=== PATIENT | female | born 1995 | race Caucasian/White ===

== ENCOUNTER 2018-06-07 07:26 | Day surgery (SDC) | payer OTHER, MEDICAID, SELFPAY ==
[2018-06-05 08:00] VITALS: BMI 30.3
[2018-06-07] VITALS (10 sets, daily range): BP systolic 112–144; BP diastolic 73–101; PULSE 70–105; RESP 12–16; TEMP 35.9–36.6; O2SAT 97–100; BMI 30.3
[2018-06-07] MEDS: LACTATED RINGERS 1,000 ML 42 ML IV (08:16)
[2018-06-07] MEDS: CLINDAMYCIN 600 MG/50 ML PIGGYBACK 50 MG IV (08:55)
--- NOTE | 2018-06-07 09:21 | SUR.OPER ---
Lithotomy on padded OR bed, head on pillow, arms secured on padded arm boards at <90 degrees abduction. Legs secured in padded yellow fins stirrups.
[2018-06-07] MEDS: BUPIVACAINE 0.5% W/ EPI (PF) VIAL 30 ML INJ (09:32)
--- NOTE | 2018-06-07 09:54 | PM.GYNOP.1 ---
Operative Date/Time/Diagnoses Date of procedure: 06/07/18 Time of procedure: 09:55 Pre-op diagnosis: retained IUD hematometria Post-op diagnosis: other (Fluid uterus was mucous) Procedure: Procedures Operation Date: 06/07/18 08:45 <No data on this case meets the specified criteria> Indications: menorrhagia Retained IUD Hematometra Possible endometriosis Surgeon: Sameer Castro Anesthesia Type: General Operative Notes Findings: patient with gelatinous material inside the uterus Evacuation with hysteroscopy IUD was upside down and contained within the fluid Normal uterine cavity with normal ostia and no deformity Laparoscopy showed a normal uterus tubes and ovaries Laparoscopy showed a normal appendix normal gallbladder normal liver normal intestines Closure Type: primary Specimen(s): none Estimated blood loss (mL): 25 Blood products transfused: none Procedure in detail: the patient was placed supine upon the operating table and anesthetized. She was then placed in the dorsal lithotomy position and examined under anesthesia. The patient was felt to have a normal anterior uterus and no masses. The patient was then prepped and draped in the usual fashion. A speculum was set in place. The anterior lip of the cervix grasped with a toothed tenaculum. Uterine cervix was dilated to a Hegar 11. no fluid was obtained at this point. However at this juncture gelatinous material began to ooze from the cervix. The hysteroscope was placed and the gelatinous material was flushed out with the hysteroscopic fluid. The IUD was upside down with the arms facing toward the cervix. The IUD was grasped and removed without difficulty. The uterine cavity was looked at carefully and both tubal ostia could be seen and photographed. There was no deformity to the uterine cavity and the endometrium appeared to be normal. Gloves were changed and attention turned to the abdomen. The umbilicus was injected with 10 cc of 0.5% Marcaine and 1 to [id number] epinephrine. A sharp knife incision was made. The Veress needle was placed and 3.2 L of carbon dioxide gas were insufflated in the abdomen. The Veress needle was withdrawn. A 5 mm port was placed without difficulty. Laparoscopic was placed there throughout the pelvic contents visualized. Patient had a normal uterus, tubes, and ovaries. These were photographed. All peritoneal surfaces appeared to be normal. Cul-de-sac was normal uterus sacral ligaments were normal. There was no evidence of adhesive disease or endometriosis. The upper abdomen showed a normal appendix and cecum. There was a normal gallbladder and normal liver Complications: none Post-operative Condition: stable Disposition: PACU Plan for aftercare: discharged home
[2018-06-07] MEDS: ONDANSETRON 4 MG/2 ML INJ IV (09:56)
[2018-06-07] MEDS: fentaNYL 100 MCG/2 ML INJ 50 MCG IV ×2 (09:59→10:04)
[2018-06-07] MEDS: OXYCODONE/ACETAMINOPHEN 5/325 TABLET 1 TAB PO (11:06)
--- NOTE | 2018-06-07 11:25 | SUR.PHASEII ---
Pt with steristrips to mid abdomen from laprascopic procedure; area began to ooze a very small amount of bloody drainage when pt got up to get dressed. Area reenforced with 4x4 gauze and tape and pt instructed to call if bleeding does not resolve or increases.
== END 2018-06-07 11:30 | disposition home or self-care (01) ==
PROVIDERS: PCP Physician Assistant Medical
PROC: (CPT 49320; principal; 2018-06-07 08:45)
PROC: 0UDB8ZZ Extraction of Endometrium, Via Natural or Artificial Opening Endoscopic (ICD-10-PCS; CPT 58558; 2018-06-07 08:45)
PROC: (CPT 49320; 2018-06-07 08:45)
DX: N92.0 Excessive and frequent menstruation with regular cycle (principal); N85.7 Hematometra; Z30.432 Encounter for removal of intrauterine contraceptive device; T81.30XA Disruption of wound, unspecified, initial encounter; L76.82 Other postprocedural complications of skin and subcutaneous tissue
CPT/HCPCS: 49320; 58579; 12001; 99282; 99283; J1100; J1885; J2405; J2704; J3010

== ENCOUNTER 2018-06-07 19:18 | Emergency (ER) | payer OTHER, MEDICAID, SELFPAY ==
[2018-06-07 19:35] VITALS: BP 122/83; PULSE 107; RESP 18; TEMP 37; O2SAT 100
--- NOTE | 2018-06-07 22:31 | ED.SKABFB ---
HPI - Skin/Abscess/Foreign Bdy General Chief complaint: Abdominal Pain Stated complaint: HAD SURGERY TODAY INCISION LEFT OPEN Time Seen by Provider: 06/07/18 22:20 Source: patient Mode of arrival: ambulatory Limitations: no limitations History of Present Illness HPI narrative: The patient presents with wound dehiscence. She had a laparoscopy today. She says when she was discharged after the procedure she noticed that the incision at her umbilicus was bleeding. Nurse placed a bandage over it however when she got home she noticed that the skin was opened. He says the bleeding has improved, but water and the wound looked at. Related Data Home Medications Medication Instructions Recorded Confirmed ethynodiol diacetate-ethinyl 1 tab PO DAILY 05/17/18 06/07/18 estradiol 1 mg-35 mcg tablet magnesium oxide 400 mg PO DAILY 06/07/18 06/07/18 Previous Rx's Medication Instructions Recorded ibuprofen 600 mg PO QID PRN #20 tab 06/07/18 oxycodone-acetaminophen [Percocet] 1 tab PO Q4-6H PRN #20 tab 06/07/18 Allergies Allergy/AdvReac Type Severity Reaction Status Date / Time amoxicillin Allergy Severe hives, Verified 06/07/18 07:45 fever cephalexin Allergy Severe fever, Verified 06/07/18 07:45 hives cyproheptadine Allergy Severe fever, Verified 06/07/18 07:45 hives Review of Systems Review of Systems GENERAL: Denies chills,fever HEENT: Denies throat pain RESPIRATORY: Denies dyspnea, cough, wheezing CARDIOVASCULAR: Denies chest pain, palpitations GASTROINTESTINAL: Denies nausea, vomiting MUSCULOSKELETAL: Denies extremity pain, injury SKIN: See HPI NEUROLOGIC: Denies weakness, dizziness, headache, numbness 8 point review of systems is negative except for those stated above and HPI PFSH Medical History Diarrhea (Acute) Endometriosis determined by laparoscopy (Acute) History of hysteroscopy (Acute) Hypogonadotropic hypogonadism (Acute) IUD (intrauterine device) in place (Acute) Menorrhagia (Acute) Surgical History H/O laparoscopy (Acute) Social History household members: family Smoking Status: Never smoker Social History household members: family Smoking Status: Never smoker Exam Initial Vital Signs Initial Vital Signs: Vital Signs Temperature 98.6 F 06/07/18 19:35 Pulse Rate 107 H 06/07/18 19:35 Respiratory Rate 18 06/07/18 19:35 Blood Pressure 122/83 06/07/18 19:35 Pulse Oximetry 100 06/07/18 19:35 GENERAL: Well-appearing, well-nourished and in no acute distress. CARDIOVASCULAR: peripheral pulses in tact, cap refill <2 sec RESPIRATORY: No respiratory distress, speaks in full sentences without difficulty ABDOMEN: Soft, nontender, no guarding or rebound EXTREMITIES: Normal range of motion, no clubbing or edema. Neurovascularly intact NEUROLOGICAL: Cranial nerves II through XII grossly intact. Normal gait and speech. SKIN: Incision site at the umbilicus has dehisced. 1 absorbable suture is noted. Bleeding controlled. Open area 1 cm Procedures Laceration Repair Laceration 1: Site: other (Abdomen) Size (cm): 1 Description: linear Depth: simple, single layer Local Anesthetic: lidocaine 2% and with epi Amount of anesthesia used (mL): 2 Pre-repair: wound explored, irrigated extensively and deep structures intact Skin layer closed with: nylon Size (cm): 4-0 Number of sutures: 1 Course Vital Signs - 8 hr 06/07/18 23:33 Temperature 98.2 F Pulse Rate 89 Respiratory Rate 18 Pulse Oximetry 98 MDM - Skin/Abscess/Foreign Bdy MDM Narrative Medical decision making narrative: Suture helped skin approximation. Discharge Plan Departure Patient Disposition: Home Clinical Impression: Abdominal wound dehiscence Discharge Date/Time: 06/07/18 23:34 Interventions: ED Discharge Assessment Last Done: 06/07/18 23:33 Instructions: DI for Wound Dehiscence Activity Restrictions/Additional Instructions: 1. Have your suture removed in 7-10 days, you may go to walk-in clinic, return to the ER or call your primary care physician. 2. No soaking in water including dishes, bathtubs, Lakes, swimming pools etc 3. Signs of infection include, but not limited to, increased redness, increased swelling, increased pain, fever and purulent drainage, if the symptoms should arise, you may need an antibiotic and you should have a reevaluation either by your primary care provider or by the emergency department. Prescriptions: No Action ethynodiol diac-eth estradiol [Kelnor (28)] 1-35 mg-mcg tablet 1 tab PO DAILY RF: 0 magnesium oxide 400 mg magnesium Tablet 400 mg PO DAILY RF: 0 oxycodone-acetaminophen [Percocet] 5-325 mg tablet 1 tab PO Q4-6H PRN (Reason: pain) Qty: 20 RF: 0 ibuprofen 600 mg tablet 600 mg PO QID PRN (Reason: pain) Qty: 20 RF: 0 Referrals: Destinee Ann PA-C [Primary Care Provider] - Sameer Castro MD [Physician] -
[2018-06-07 23:33] VITALS: PULSE 89; RESP 18; TEMP 36.8; O2SAT 98
== END 2018-06-07 23:34 | disposition home or self-care (01) ==
PROVIDERS: Emergency Provider Emergency Medicine; PCP Physician Assistant Medical
DX: L76.82 Other postprocedural complications of skin and subcutaneous tissue (principal); T81.30XA Disruption of wound, unspecified, initial encounter
CPT/HCPCS: 99283

== ENCOUNTER → 2018-06-25 14:09 | Outpatient (CLI) | payer OTHER, MEDICAID, SELFPAY ==
--- NOTE | 2018-06-25 14:11 | DI.US.S_ITS ---
PROCEDURE: US PELVIC COMPLETE INDICATIONS: Pelvic cramping/menorrhagia TECHNIQUE: Real-time scanning was performed of the pelvic organs, with image documentation. Additional endovaginal scanning was necessary due to incomplete visualization of the adnexal and endometrial structures by transabdominal scanning. COMPARISON: [facility], [place], US PELVIC COMPLETE, 05/17/2018, 9:07. FINDINGS: Transabdominal scanning: Limited scanning through the kidneys shows no hydronephrosis. There is small amount of free fluid in the cul-de-sac and left adnexa with low level internal echo. Endovaginal scanning: Uterus: Uterus is retroverted measuring 5.8 x 3.7 x 3.5 cm. The endometrium is thickened measuring 21.9 mm in combined thickness and demonstrates heterogeneous echotexture. On Doppler ultrasound, there is no flow within the endometrium. Ovaries: Ovaries are normal in size and echotexture. Right ovary measures 3.9 x 0.8 x 1.5 cm. Left ovary measures 3.5 x 1.2 x 1.2 cm. IMPRESSION: 1. Thickened endometrium which demonstrates heterogeneous echotexture. Doppler ultrasound demonstrates no flow in the endometrium. The ultrasound findings suggest hematoma in the initial cavity. 2. Normal ovaries. 3. A small amount of free fluid in the cul-de-sac and left adnexa with low level echo. Dictated by: Laila Becerril M.D. on 06/25/2018 at 16:59 Approved by: Laila Becerril M.D. on 06/25/2018 at 17:47
== END ==
PROVIDERS: PCP Physician Assistant Medical
DX: N92.0 Excessive and frequent menstruation with regular cycle (principal); R10.2 Pelvic and perineal pain; R93.89 Abnormal findings on diagnostic imaging of other specified body structures; R10.84 Generalized abdominal pain
CPT/HCPCS: 76830; 76856